=== PATIENT | male | born 1985 | race African-American/Black ===

== ENCOUNTER 2017-03-23 20:31 | Emergency (ER) | payer OTHER ==
[~2017-03-23] VITALS: Ht 193 cm; Wt 186.0 kg
--- NOTE | ~2017-03-23 | EKG ---
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
[2017-03-23] MEDS ORDERED: NAPROSYN500 MG PO (21:25)
[2017-03-23 22:22] VITALS: BP 163/93
== END 2017-03-23 22:30 | disposition home or self-care (01) ==
LOC: ER 20:31
DX: R20.2 Paresthesia of skin (principal); I10 Essential (primary) hypertension